=== PATIENT | male | born 1970 | race Caucasian/White ===

== ENCOUNTER 2019-10-26 01:22 | Emergency (ER) | payer SELFPAY ==
[2019-10-26] MEDS ORDERED: NA CHLORIDE 0.9% 1,000 ML ONE (01:29)
[2019-10-26] MEDS ORDERED: ONDANSETRON 4 MG/2 ML VIAL ONE (01:29)
[2019-10-26] MEDS ORDERED: FENTANYL CITR 100 MCG/2 ML ONE (01:29)
[2019-10-26] MEDS ORDERED: KETOROLAC 30 MG/ML INJ ONE (01:44)
[2019-10-26 02:00] LABS: Basophils % 0.6 % (0-1.3); Hematocrit 36.4 % (39.6-49.0); Lymphocytes % 14.1 % (15.3-44.8); MPV 7.6 fL (7.6-11.3); RBC Red Blood Cell Count 4.38 M/uL (4.33-5.43)
[2019-10-26 02:43] LABS: Albumin 3.3 g/dL (3.4-5.0); Bilirubin Direct 0.2 mg/dL (0-0.2); Bilirubin Total 0.7 mg/dL (0.2-1.0); Potassium 3.3 mmol/L (3.5-5.1)
--- NOTE | 2019-10-26 02:53 | EDPHYS ---
Physician Documentation [facility] Name: Herrera Sierra Age: 49 yrs Sex: Male : 1970 Arrival Date: 10/26/2019 Time: 01:32 Bed 19 Private MD: ED Physician Lu Gallego HPI: 10/26 02:17 This 49 yrs old Male presents to ER via Unassigned with complaints of Back pm1 Pain. 02:17 The patient presents with pain that is acute, with no known mechanism of injury. The pm1 symptoms are located in the left low back. Onset: The symptoms/episode began/occurred just prior to arrival. The pain radiates to the left lower quadrant. Associated signs and symptoms: Pertinent negatives: chest pain, dysuria, fever, nausea, vomiting. The problem was sustained from unknown cause. Modifying factors: The patient symptoms are alleviated by nothing, the patient symptoms are aggravated by nothing. Severity of symptoms: in the emergency department the symptoms are actually worse. The patient has not experienced similar symptoms in the past. It is unknown whether or not the patient has recently seen a physician. Historical: - Allergies: 02:23 No Known Allergies; - Home Meds: 02:23 None [Active]; - PMHx: 02:23 Hypertension; - PSHx: 02:23 None; - Immunization history:: Adult Immunizations up to date. - Coronavirus screen:: The patient has NOT traveled to [place] in the past 14 days. - Social history:: Smoking status: Patient reports the use of cigarette tobacco products. - Ebola Screening: : Patient negative for fever greater than or equal to 101.5 degrees Fahrenheit, and additional compatible Ebola Virus Disease symptoms Patient denies exposure to infectious person. ROS: 02:17 Constitutional: Negative for fever, chills, and weight loss, Cardiovascular: Negative pm1 for chest pain, palpitations, and edema, Respiratory: Negative for shortness of breath, cough, wheezing, and pleuritic chest pain. 02:17 : Negative for injury, bleeding, discharge, and swelling, MS/Extremity: Negative for injury and deformity, Skin: Negative for injury, rash, and discoloration, Neuro: Negative for headache, weakness, numbness, tingling, and seizure. 02:17 Abdomen/GI: Positive for abdominal pain, of the left lower quadrant, Negative for nausea, vomiting, and diarrhea. 02:17 Back: Positive for flank pain, on the left. Exam: 02:17 Constitutional: This is a well developed, well nourished patient who is awake, alert, pm1 and in no acute distress. Head/Face: Normocephalic, atraumatic. Chest/axilla: Normal chest wall appearance and motion. Nontender with no deformity. No lesions are appreciated. Cardiovascular: Regular rate and rhythm with a normal S1 and S2. No gallops, murmurs, or rubs. Normal PMI, no JVD. No pulse deficits. Respiratory: Lungs have equal breath sounds bilaterally, clear to auscultation and percussion. No rales, rhonchi or wheezes noted. No increased work of breathing, no retractions or nasal flaring. Abdomen/GI: Soft, non-tender, with normal bowel sounds. No distension or tympany. No guarding or rebound. No evidence of tenderness throughout. 02:17 Skin: Warm, dry with normal turgor. Normal color with no rashes, no lesions, and no evidence of cellulitis. MS/ Extremity: Pulses equal, no cyanosis. Neurovascular intact. Full, normal range of motion. 02:17 Back: pain, that is moderate, of the left low back, normal spinal alignment noted, vertebral tenderness, is not appreciated. 02:17 Neuro: Orientation: is normal, Mentation: is normal, Motor: is normal, moves all fours, strength is normal, strength is 5/5 in all extremities. Vital Signs: 01:35 BP 146 / 85; Pulse 65; Resp 18; Temp 98.2; Pulse Ox 99% ; Weight 81.65 kg; Height 5 ft. 9 in. (175.26 cm); Pain 9/10; 02:32 BP 137 / 84; Pulse 66; Resp 18; Pulse Ox 96% on R/A; 03:00 BP 138 / 68; Pulse 78; Resp 18; Pulse Ox 100% ; ea 01:35 Body Mass Index 26.58 (81.65 kg, 175.26 cm) MDM: 01:39 Patient medically screened. pm1 02:50 Data reviewed: vital signs. Data interpreted: Pulse oximetry: on room air is 96 %. pm1 Interpretation: normal. Counseling: I had a detailed discussion with the patient and/or guardian regarding: the historical points, exam findings, and any diagnostic results supporting the discharge/admit diagnosis, lab results, radiology results, the need for outpatient follow up, to return to the emergency department if symptoms worsen or persist or if there are any questions or concerns that arise at home. 10/26 01:38 Order name: Basic Metabolic Panel; Complete Time: 02:49 pm1 10/26 01:38 Order name: CBC with Diff; Complete Time: 02:49 pm1 10/26 01:38 Order name: Creatinine for Radiology; Complete Time: 02:49 pm1 10/26 01:38 Order name: Hepatic Function; Complete Time: 02:49 pm1 10/26 01:38 Order name: Lipase; Complete Time: 02:49 pm1 10/26 01:38 Order name: CT Stone Protocol pm1 10/26 01:38 Order name: IV Saline Lock; Complete Time: 01:47 pm1 10/26 01:38 Order name: Labs collected and sent; Complete Time: 01:47 pm1 Administered Medications: 01:30 Drug: fentaNYL (PF) 50 mcg Route: IVP; Site: left forearm; 02:31 Follow up: Response: No adverse reaction; Pain is decreased; RASS: Alert and Calm (0) 01:38 Drug: NS 0.9% 1000 ml Route: IV; Rate: 1000 ml; Site: left forearm; 03:06 Follow up: Response: No adverse reaction; IV Status: Completed infusion 01:40 Drug: fentaNYL (PF) 50 mcg Route: IVP; Site: left forearm; 02:31 Follow up: Response: No adverse reaction; Pain is decreased; RASS: Alert and Calm (0) 01:42 Drug: Zofran 4 mg Route: IVP; Site: left forearm; 02:32 Follow up: Response: No adverse reaction; Nausea is decreased 01:47 Drug: TORadol 30 mg Route: IVP; Site: left forearm; 02:32 Follow up: Response: No adverse reaction; Pain is decreased 03:00 Drug: Flomax 0.4 mg Route: PO; ea 03:06 Follow up: Response: No adverse reaction 03:00 Drug: Ciprofloxacin 500 mg Route: PO; ea 03:06 Follow up: Response: No adverse reaction wh Disposition: 10/26/19 02:52 Discharged to Home. Impression: Calculus of ureter. - Condition is Stable. - Discharge Instructions: Kidney Stones, Dietary Guidelines to Help Prevent Kidney Stones. - Prescriptions for Tylenol- Codeine #3 300-30 mg Oral Tablet - take 2 tablets by ORAL route every 6 hours As needed; 20 tablet. Zofran 4 mg Oral Tablet - take 1 tablet by ORAL route every 12 hours As needed; 20 tablet. Flomax 0.4 mg Oral Capsule, Sust. Release 24 hr - take 1 capsule by ORAL route once daily 1/2 hour following the same meal each day; 10 capsule. Cipro 500 mg Oral Tablet - take 1 tablet by ORAL route every 12 hours for 7 days; 14 tablet. - Medication Reconciliation Form, Thank You Letter, Antibiotic Education, Prescription Opioid Use, Work release form, Family Work Release form. - Follow up: Emergency Department; When: As needed; Reason: Worsening of condition. Follow up: Private Physician; When: 2 - 3 days; Reason: Recheck today's complaints, Continuance of care, Re-evaluation by your physician. Follow up: Mary Jenkins MD; When: 2 - 3 days; Reason: Recheck today's complaints, Continuance of care, Re-evaluation by your physician. - Problem is new. - Symptoms have improved. Addendum: 11/01/2019 16:30 Co-signature as Attending Physician, Lu Gallego MD. m a2 Signatures: Dispatcher [employer] EDMS Kannan Flores, GORDO SHOULDER PUNCHER pm1 Klaudia Redman RN RN ea Habalo, Winsy wh Alzahri, Mohammad, MD MD ma2 Corrections: (The following items were deleted from the chart) 10/26 02:57 02:52 10/26/2019 02:52 Discharged to Home. Impression: Calculus of ureter. Condition is pm1 Stable. Forms are Medication Reconciliation Form, Thank You Letter, Antibiotic Education, Prescription Opioid Use. Follow up: Emergency Department; When: As needed; Reason: Worsening of condition. Follow up: Private Physician; When: 2 - 3 days; Reason: Recheck today's complaints, Continuance of care, Re-evaluation by your physician. Problem is new. Symptoms have improved. pm1 03:09 02:57 10/26/2019 02:52 Discharged to Home. Impression: Calculus of ureter. Condition is ea Stable. Discharge Instructions: Kidney Stones, Dietary Guidelines to Help Prevent Kidney Stones. Prescriptions for Tylenol-Codeine #3 300-30 mg Oral Tablet - take 2 tablets by ORAL route every 6 hours As needed; 20 tablet, Zofran 4 mg Oral Tablet - take 1 tablet by ORAL route every 12 hours As needed; 20 tablet, Flomax 0.4 mg Oral Capsule, Sust. Release 24 hr - take 1 capsule by ORAL route once daily 1/2 hour following the same meal each day; 10 capsule, Cipro 500 mg Oral Tablet - take 1 tablet by ORAL route every 12 hours for 7 days; 14 tablet. and Forms are Medication Reconciliation Form, Thank You Letter, Antibiotic Education, Prescription Opioid Use. Follow up: Emergency Department; When: As needed; Reason: Worsening of condition. Follow up: Private Physician; When: 2 - 3 days; Reason: Recheck today's complaints, Continuance of care, Re-evaluation by your physician. Follow up: Mary Jenkins; When: 2 - 3 days; Reason: Recheck today's complaints, Continuance of care, Re-evaluation by your physician. Problem is new. Symptoms have improved. pm1
--- NOTE | 2019-10-26 02:53 | ER ---
Nurse's Notes [facility] Name: Herrera Sierra Age: 49 yrs Sex: Male : 1970 Arrival Date: 10/26/2019 Time: 01:32 Bed 19 Private MD: Diagnosis: Calculus of ureter Presentation: 10/26 01:35 Presenting complaint: EMS states: Pt C/O left flank pain that started an hour ago. Pt wh denies Hx of Kidney Stones. 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 Transition of care: patient was not received from another setting of care. Onset of symptoms was October 26, 2019. Risk Assessment: Do you want to hurt yourself or someone else? Patient reports no desire to harm self or others. Initial Sepsis Screen: Does the patient meet any 2 criteria? No. Patient's initial sepsis screen is negative. Does the patient have a suspected source of infection? No. Patient's initial sepsis screen is negative. Care prior to arrival: Medication(s) given: Nubain 5 mg nIV IV initiated. 20 GA, in the left forearm. 01:35 Method Of Arrival: EMS: [facility] 01:35 Acuity: YOGI 3 Historical: - Allergies: 02:23 No Known Allergies; - Home Meds: 02:23 None [Active]; - PMHx: 02:23 Hypertension; - PSHx: 02:23 None; - Immunization history:: Adult Immunizations up to date. - Coronavirus screen:: The patient has NOT traveled to [place] in the past 14 days. - Social history:: Smoking status: Patient reports the use of cigarette tobacco products. - Ebola Screening: : Patient negative for fever greater than or equal to 101.5 degrees Fahrenheit, and additional compatible Ebola Virus Disease symptoms Patient denies exposure to infectious person. Screenin:35 Abuse screen: Denies threats or abuse. Denies injuries from another. Nutritional screening: No deficits noted. Tuberculosis screening: No symptoms or risk factors identified. Fall Risk None identified. Assessment: 01:35 General: Appears in no apparent distress. Behavior is crying. Pain: Complains of pain wh in left low back Pain radiates to left lower quadrant Pain currently is 9 out of 10 on a pain scale. Quality of pain is described as aching, Pain began 1 hour ago. Neuro: Level of Consciousness is awake, alert, obeys commands, Oriented to person, place, time, situation, Appropriate for age. Cardiovascular: Heart tones S1 S2. Respiratory: Airway is patent Respiratory effort is even, unlabored, Respiratory pattern is regular, symmetrical, Breath sounds are clear bilaterally. GI: Abdomen is flat, non-distended, Abd is soft and non tender X 4 quads. : No signs and/or symptoms were reported regarding the genitourinary system. EENT: No signs and/or symptoms were reported regarding the EENT system. Derm: Skin is intact, is healthy with good turgor, Skin is pink, warm \T\ dry. normal. Musculoskeletal: Circulation, motion, and sensation intact. 02:26 Reassessment: Patient appears in no apparent distress at this time. No changes from previously documented assessment. Patient and/or family updated on plan of care and expected duration. Pain level reassessed. Patient is alert, oriented x 3, equal unlabored respirations, skin warm/dry/pink. Patient states feeling better. Patient states symptoms have improved. 03:08 Reassessment: Patient and/or family updated on plan of care and expected duration. Pain ea level reassessed. Patient is alert, oriented x 3, equal unlabored respirations, skin warm/dry/pink. Discharge instruction given to patient verbalized the understanding of instruction, pt left ED ambulatory accompanied by family, pt tolerating well. Patient states feeling better. Patient states symptoms have improved. Vital Signs: 01:35 BP 146 / 85; Pulse 65; Resp 18; Temp 98.2; Pulse Ox 99% ; Weight 81.65 kg; Height 5 ft. 9 in. (175.26 cm); Pain 9/10; 02:32 BP 137 / 84; Pulse 66; Resp 18; Pulse Ox 96% on R/A; wh 03:00 BP 138 / 68; Pulse 78; Resp 18; Pulse Ox 100% ; ea 01:35 Body Mass Index 26.58 (81.65 kg, 175.26 cm) ED Course: 01:32 Patient arrived in ED. ds1 01:35 Arm band placed on right wrist. wh 01:35 Patient has correct armband on for positive identification. Placed in gown. Bed in low wh position. Call light in reach. Side rails up X 1. Pulse ox on. NIBP on. 01:35 Maintain EMS IV. Dressing intact. Good blood return noted. Site clean \T\ dry. Gauge \T\ wh site: 20g LFA. 01:37 Kannan Flores NP is PHCP. pm1 01:37 Lu Gallego MD is Attending Physician. pm1 01:47 René Montoya is Primary Nurse. wh 02:19 CT Stone Protocol In Process Unspecified. EDMS 02:22 Triage completed. wh 02:57 Mary Jenkins MD is Referral Physician. pm1 03:06 No provider procedures requiring assistance completed. IV discontinued, intact, wh bleeding controlled, No redness/swelling at site. Administered Medications: 01:30 Drug: fentaNYL (PF) 50 mcg Route: IVP; Site: left forearm; 02:31 Follow up: Response: No adverse reaction; Pain is decreased; RASS: Alert and Calm (0) 01:38 Drug: NS 0.9% 1000 ml Route: IV; Rate: 1000 ml; Site: left forearm; 03:06 Follow up: Response: No adverse reaction; IV Status: Completed infusion 01:40 Drug: fentaNYL (PF) 50 mcg Route: IVP; Site: left forearm; 02:31 Follow up: Response: No adverse reaction; Pain is decreased; RASS: Alert and Calm (0) 01:42 Drug: Zofran 4 mg Route: IVP; Site: left forearm; 02:32 Follow up: Response: No adverse reaction; Nausea is decreased 01:47 Drug: TORadol 30 mg Route: IVP; Site: left forearm; 02:32 Follow up: Response: No adverse reaction; Pain is decreased 03:00 Drug: Flomax 0.4 mg Route: PO; ea 03:06 Follow up: Response: No adverse reaction 03:00 Drug: Ciprofloxacin 500 mg Route: PO; ea 03:06 Follow up: Response: No adverse reaction Outcome: 02:52 Discharge ordered by . pm1 03:07 Discharged to home ambulatory, with friend. 03:07 Condition: stable 03:07 Discharge instructions given to patient, Instructed on discharge instructions, follow up and referral plans. no drinking with medication, no driving heavy equipment, medication usage, urine strainer, POC Demonstrated understanding of instructions, follow-up care, medications, POC Prescriptions given X 4. 03:09 Patient left the ED. ea Signatures: Dispatcher [employer] EDMS Kane Nilsa ds1 Kannan Flores, MILK DELIVERY DRIVER MILK DELIVERY DRIVER pm1 Klaudia Redman, RN RN René Cazares
[2019-10-26] MEDS ORDERED: TAMSULOSIN 0.4 MG SR CAP ONE (03:01)
[2019-10-26] MEDS ORDERED: CIPROFLOXACIN HCL 500 MG TAB ONE (03:01)
[2019-10-26 04:19] VITALS: TEMP 98.2
[2019-10-26 04:22] VITALS: BP 138/68; O2SAT 100
--- NOTE | 2019-10-26 10:45 | RAD REPORT ---
EXAM DESCRIPTION: CT ABDOMEN AND PELVIS WITHOUT CONTRAST CLINICAL HISTORY: FLANK PAIN COMPARISON: None Available. TECHNIQUE: CT of the abdomen and pelvis without IV contrast. Evaluation of the solid organs and vasc ulature is suboptimal due to lack of IV contrast. FINDINGS: Lung Bases: The visualized lung bases are clear. Bones: Mild degenerative change of the spine. Severe osteoarthritic change of the left hip. Moderate osteoarthritic change of the right hip. Abdomen: Liver: The liver has normal size and density. Gallbladder: No calcified gallstones. Spleen, Pancreas, and Adrenal Glands: The spleen, pancreas, and adrenal glands are unremarkable. Kidneys: There is a 0.4 cm obstructing calculus at the left UVJ producing mild left hydroureter and h ydronephrosis. Vasculature: Aortoiliac atherosclerosis. IVC is unremarkable. Stomach: The stomach and duodenum have normal course. Other: No free intraperitoneal air. No free fluid or lymphadenopathy. Pelvis: Bladder: Urinary bladder is otherwise unremarkable. Bowel: No dilated loops of large or small bowel. Appendix: Normal appendix. Pelvis: Prostate is not enlarged. Small fat-containing left inguinal hernia. IMPRESSION: 1. There is a 0.4 cm obstructing calculus at the left UVJ producing mild left hydrourete r and hydronephrosis. This exam was performed according to our departmental dose-optimization program, which includes autom ated exposure control, adjustment of the mA and/or kV according to patient size and/or use of iterati ve reconstruction technique. Electronically signed by: King Saenz 10/26/2019 2:25 AM DIRECTOR [employer] Due to temporary technical issues with the PACS/Fluency reporting system, reports are being signed by the in house radiologist as a courtesy to ensure prompt reporting. The interpreting radiologist is f ully responsible for the content of the report.
== END 2019-10-26 03:09 | disposition home or self-care (01) ==
LOC: ER 01:22
DX: N20.1 Calculus of ureter (principal); I10 Essential (primary) hypertension; F17.210 Nicotine dependence, cigarettes, uncomplicated
CPT/HCPCS: 36415; 74176; 76377; 80048; 80076; 83690; 85025; 96361; 96374; 96375; 99284; J2405; J3010; J7030